=== PATIENT | female | born 1970 | race African-American/Black ===

== ENCOUNTER 2018-09-25 03:22 | Emergency (ER) | payer BC, MEDICAID ==
[~2018-09-25] VITALS: Ht 170.2 cm; Wt 68.0 kg
[2018-09-25] MEDS ORDERED: KETOROLAC 30MG/ML VIAL IV ONE (04:15)
[2018-09-25 04:20] LABS: BASOPHILS % 0.5 % (0.0-2.0); EOSINOPHILS % 0.8 % (0.0-5.0); HEMATOCRIT. 41.2 % (36.0-48.0); HEMOGLOBIN. 13.9 g/dL (12.0-16.0); LYMPHOCYTES % 21.9 % (20.0-50.0); MEAN CORPUSCULAR HEMOGLOBIN 29.6 pg (28.0-32.0); MEAN CORPUSCULAR VOLUME 87.7 fL (81.0-99.0); MEAN PLATELET VOLUME 9.3 fl (7.4-10.4); MONOCYTES % 7.1 % (2.0-8.0); NEUTROPHILS % 69.7 % (40.0-76.0); PLATELET 202 x1000/uL (130-400); RED BLOOD CELL COUNT 4.69 mill/uL (4.2-5.4); RED CELL DISTRIBUTION WIDTH 14.5 % (11.6-14.6)
[2018-09-25 04:31] LABS: CHLORIDE 109 mEq/L (98-107)
[2018-09-25 09:00] VITALS: BP 136/87
== END 2018-09-25 09:30 | disposition home or self-care (01) ==
LOC: ER 03:22
DX: R07.89 Other chest pain (principal); F17.200 Nicotine dependence, unspecified, uncomplicated; Z90.710 Acquired absence of both cervix and uterus
CPT/HCPCS: 36415; 71045; 80053; 83880; 84484; 85025; 93005; 96374; 99284; J1885

== ENCOUNTER 2020-08-10 06:26 | Emergency (ER) | payer BC, OTHER ==
[~2020-08-10] VITALS: Ht 157.5 cm; Wt 69.0 kg
[2020-08-10] MEDS ORDERED: ONDANSETRON HCL 4MG/2ML INJ IV STA (06:43)
[2020-08-10] MEDS ORDERED: MORPHINE SULFATE 4 MG/ML CPJ (NOT FOR IM USE) IV STA (06:43)
[2020-08-10] MEDS ORDERED: FAMOTIDINE 20MG/2ML VIAL IV STA (06:43)
[2020-08-10] MEDS ORDERED: SODIUM CHLORIDE 0.9% 1,000 ML IV ONE ×2 (06:45→09:15)
[2020-08-10 07:07] LABS: BASOPHILS % 1.2 % (0.0-2.0); EOSINOPHILS % 1.2 % (0.0-5.0); HEMATOCRIT. 44.1 % (36.0-48.0); HEMOGLOBIN. 14.8 g/dL (12.0-16.0); LYMPHOCYTES % 33.9 % (20.0-50.0); MEAN CORPUSCULAR HEMOGLOBIN 28.9 pg (28.0-32.0); MEAN CORPUSCULAR VOLUME 86.3 fL (81.0-99.0); MEAN PLATELET VOLUME 9.5 fl (7.4-10.4); MONOCYTES % 8.2 % (2.0-8.0); NEUTROPHILS % 55.5 % (40.0-76.0); PLATELET 227 x1000/uL (130-400); RED BLOOD CELL COUNT 5.11 mill/uL (4.2-5.4); RED CELL DISTRIBUTION WIDTH 14.5 % (11.6-14.6)
[2020-08-10 07:09] LABS: CHLORIDE 107 mEq/L (98-107)
[2020-08-10 07:12] LABS: ETHANOL BLOOD < 10 mg/dL; INR 0.9
[2020-08-10 09:42] LABS: CLARITY URINE CLOUDY (CLEAR); COLOR URINE YELLOW (YELLOW); KETONES URINE NEGATIVE (NEGATIVE); LEUKOCYTE ESTERASE URINE 3+ (NEGATIVE); NITRITE URINE NEGATIVE (NEGATIVE); OCCULT BLOOD URINE TRACE (NEGATIVE); PH URINE 5.5 (4.5-8.0); PROTEIN URINE NEGATIVE (NEGATIVE); SPECIFIC GRAVITY URINE 1.015 (1.005-1.030); UROBILINOGEN URINE 0.2 E.U./dL (0.2-1.0)
[2020-08-10] MEDS ORDERED: MORPHINE SULFATE 4 MG/ML CPJ (NOT FOR IM USE) IV ONE (10:00)
[2020-08-10] MEDS ORDERED: ONDANSETRON HCL 4MG/2ML INJ IV ONE (10:00)
[2020-08-10 10:05] LABS: *BENZODIAZEPINES SCREEN URINE NEGATIVE (NEGATIVE); *COCAINE SCREEN URINE NEGATIVE (NEGATIVE); METHADONE URINE SCREEN NEGATIVE (NEGATIVE)
[2020-08-10 10:06] LABS: *AMPHETAMINES SCREEN URINE NEGATIVE (NEGATIVE); *BARBITURATES SCREEN URINE NEGATIVE (NEGATIVE); CANNABINOID URINE SCREEN NEGATIVE (NEGATIVE); OPIATES URINE SCREEN PRESUMTIVE POSITIVE (NEGATIVE); PHENCYCLIDINE URINE SCREEN NEGATIVE (NEGATIVE)
[2020-08-10 11:00] VITALS: BP 140/85
== END 2020-08-10 11:22 | disposition home or self-care (01) ==
LOC: ER 06:39
DX: R10.9 Unspecified abdominal pain (principal); I10 Essential (primary) hypertension; Z90.710 Acquired absence of both cervix and uterus
CPT/HCPCS: 36415; 71045; 74176; 76705; 80053; 80305; 80320; 81003; 83690; 84484; 85025; 85610; 87086; 93005; 96361; 96374; 96375; 96376; 99285; J2270; J2405; J3490; J7030; G0480

== ENCOUNTER 2021-10-15 08:58 | Emergency (ER) | payer BC, OTHER ==
[~2021-10-15] VITALS: Ht 167.6 cm; Wt 80.0 kg
[2021-10-15] MEDS ORDERED: HYDROCODONE/ACETAMINOPHEN 5/325MG TABLET PO ONE (09:15)
[2021-10-15] MEDS ORDERED: DEXAMETHASONE 10 MG/ML VIAL IM ONE (09:15)
[2021-10-15] MEDS ORDERED: KETOROLAC 60MG/2ML VIAL IM ONE (09:15)
[2021-10-15] MEDS ORDERED: DEXAMETHASONE 10 MG/ML VIAL IM NR (10:41)
[2021-10-15] MEDS ORDERED: HYDROCODONE/ACETAMINOPHEN 5/325MG TABLET PO NR (10:41)
[2021-10-15] MEDS ORDERED: KETOROLAC 30MG/ML VIAL IM NR (10:42)
[2021-10-15 11:38] LABS: CLARITY URINE CLEAR (CLEAR); COLOR URINE DARK YELLOW (YELLOW); KETONES URINE TRACE (NEGATIVE); LEUKOCYTE ESTERASE URINE 2+ (NEGATIVE); NITRITE URINE POSITIVE (NEGATIVE); OCCULT BLOOD URINE 2+ (NEGATIVE); PROTEIN URINE TRACE (NEGATIVE); SPECIFIC GRAVITY URINE 1.029 (1.005-1.030)
[2021-10-15] MEDS ORDERED: IBUP-2028 MT (11:53)
[2021-10-15] MEDS ORDERED: AMOX-424 MT (11:53)
[2021-10-15] MEDS ORDERED: HYDR-4001 MT (11:53)
[2021-10-15 12:38] VITALS: BP 129/86
== END 2021-10-15 12:39 | disposition home or self-care (01) ==
LOC: ER 08:58
DX: N39.0 Urinary tract infection, site not specified (principal); F17.200 Nicotine dependence, unspecified, uncomplicated; I10 Essential (primary) hypertension
CPT/HCPCS: 72070; 72100; 81003; 87077; 87086; 87186; 96372; 99284; J1100; J1885

== ENCOUNTER 2022-01-11 18:26 | Emergency (ER) | payer BC ==
[~2022-01-11] VITALS: Ht 165.1 cm; Wt 75.0 kg
[~2022-01-11 18:26] MED LIST: AMOX-424 MT; HYDR-4001 MT; IBUP-2028 MT
[2022-01-11 18:31] VITALS: BP 181/113
[2022-01-11] MEDS ORDERED: ACETAMINOPHEN 325MG TABLET PO ONE (20:00)
[2022-01-11] MEDS ORDERED: HYDROCODONE/ACETAMINOPHEN 10/325MG TABLET PO ONE (20:15)
[2022-01-11] MEDS ORDERED: HYDR-4009 MT (21:26)
[2022-01-11] MEDS ORDERED: IBUP-2029 MT (21:29)
== END 2022-01-11 20:10 | disposition home or self-care (01) ==
LOC: ER 18:26
DX: M25.561 Pain in right knee (principal); I10 Essential (primary) hypertension; M19.90 Unspecified osteoarthritis, unspecified site; M54.30 Sciatica, unspecified side; Z90.710 Acquired absence of both cervix and uterus
CPT/HCPCS: 73562; 93971; 99284

== ENCOUNTER 2022-02-10 16:34 | Emergency (ER) | payer BC ==
[~2022-02-10] VITALS: Ht 167.6 cm; Wt 90.0 kg
[~2022-02-10 16:34] MED LIST changes: +HYDR-4009 MT; +IBUP-2029 MT
[2022-02-10] MEDS ORDERED: AMOXICILLIN/POTASSIUM CLAVULANATE 875/125MG TAB PO ONE (18:45)
[2022-02-10] MEDS ORDERED: TETANUS, DIPHTHERIA, PERTUSSIS VAC/PF 0.5ML (>10YR OLD) IM ONE (18:45)
[2022-02-10] MEDS ORDERED: HYDROCODONE/ACETAMINOPHEN 10/325MG TABLET PO ONE (18:45)
[2022-02-10] MEDS ORDERED: AMOX1TAB16 MT (18:51)
[2022-02-10] MEDS ORDERED: IBUP-2028 MT (18:51)
[2022-02-10] MEDS ORDERED: HYDR-4009 MT (18:51)
[2022-02-10 19:10] VITALS: BP 169/120
== END 2022-02-10 19:12 | disposition home or self-care (01) ==
LOC: ER 16:34
DX: S70.271A Other superficial bite of hip, right hip, initial encounter (principal); I10 Essential (primary) hypertension; M54.30 Sciatica, unspecified side; Z90.710 Acquired absence of both cervix and uterus; Z87.828 Personal history of other (healed) physical injury and trauma; W54.0XXA Bitten by dog, initial encounter; Y93.89 Activity, other specified; Y92.89 Other specified places as the place of occurrence of the external cause; Y99.8 Other external cause status
CPT/HCPCS: 90471; 90715; 99283